=== PATIENT | male | born 1990 | race Caucasian/White ===

== ENCOUNTER 2016-11-03 15:14 | Inpatient (IN) | payer OTHER ==
[~2016-11-03] VITALS: Ht 190.5 cm; Wt 119.0 kg
--- NOTE | ~2016-11-03 | RESCARESUM ---
"PATIENT: JESSE SHARMA | | [facility] UNIT #: [id number] | [address] AGE/SEX: 26 M : [birth year] | [address] | [place] [address] ADMIT/REG DATE: 11/03/16 | ROOM: [facility] LOC: ADTC | ADT | Summary of Residential Care Primary Counselor: Karina DESAI,[facility] Date of Admission: 11/03/16 Date of Discharge: 11/09/16 [place] [facility] Primary Care Provider Prior to Admission: none listed Admitting Diagnosis: F15.20 stimulant use disorder severe with history of IV use, F12.20 cannabis use disorder severe, F10.20 alcohol use disorder severe, F17.[address] Burnett's history and physical: bipolar disorder, attention deficit hyperactivity disorder, substance induced psychosis and increased risk for blood borne pathogens including HIV and hepatitis C. Discharge Diagnosis: same Goals Achieved: Client left treatment AMA prior to completion of treatment plan goals and objectives Continued Obstacles to Sobriety/Relapse Issues: impulsiveness, defiance, lack of structure and inability to follow through as well as relationships issues. Family Issues Addressed: none Y Individual Therapy Y Group Therapy Y Educational Series on Substance Abuse N Parents/Significant Others Attended Family Program N Acute Medical Problems During the Course of Treatment N Transferred to Hospital During the Course of Treatment (admits) Accepting of Substance Abuse Problem Non-accepting of Substance Abuse Problem n Required Psychological or Psychiatric Consultation During the Course of Treatment Completed AA Step # 0 During This Level of Care Significant Incidences During Treatment: Client's focus from admission was initially being readmitted to [facility]. When denied there, he then wanted to focus on getting into [facility]. When advised he would not be able to transition directly from treatment to [facility], he then began to look at admission to [facility]. Client failed to complete treatment assignments. Client was also noted to be focusing on female peers despite his agreement to not repeat behavior of getting into a treatment relationship. Reason For Discharge: x Left Tx Against Medical Advice/Treatment Goals Not Complete PATIENT: JESSE SHARMA | | [facility] UNIT #: [id number] | [address] [facility] AGE/SEX: 26 M : [birth year] | [address] | [place] [address] ADMIT/REG DATE: 11/03/16 | ROOM: [facility] LOC: ADTC | ADTC | Summary of Residential Care Continuing Care Plan/Recommendations: Intensive Partial Care x Sponsor Partial Care x AA Meetings/NA Meetings Outpatient Co-dependency Services Therapeutic Community x / Way House x / Way House Mental Health Therapy Marriage Counseling Other Specific Continuing Care Plan: Client would benefit from residential treatment as recommended followed by sob living environment to include structure and support to help him maintain recovery. Client has been referred to 12 step meetings and sponsorship. PRIMARY COUNSELOR: LLOYD Moreno, LADC"
--- NOTE | 2016-11-03 16:35 | NUR ---
ADMISSION NOTE Rights/Responsibilities: Copy given and explained to client. Signed and accepted by client. Client oriented to physical lay out of the ADTC unit, given Big Book and admission packet. A Sam was assigned. Rocco Client is a 26yr old single male. Referred by CSU where he has been for the past 14 days. Lives in [place], [place]. DOC, Meth, last used 10/20/16, 8-ball. No allergies, Nurse has info on meds. Was searched no contraband. No family participation. Initial paperwork given and guidlines gone over. Doctor was notified.
--- NOTE | 2016-11-03 16:45 | NUR ---
IS .25 HRS. Client was admitted at 4 P.M. Met briefly with client before supper to welcome him back to treatment, re-orient him and discuss initial treatment plan which client verbalized understanding and signed.
--- NOTE | 2016-11-03 18:21 | NUR ---
Education: 1 Hour. Client attended "Self Esteem" lecture presented by staff.
--- NOTE | 2016-11-03 18:22 | NUR ---
Education: 1 Hour. Client attended "Self Esteem" lecture presented by staff.
--- NOTE | 2016-11-03 23:10 | NUR ---
alexsandra note: client was checked into his room & attended the onsite NA meeting. Client was seen by the DR. Client was redirected by tech during the NA meeting for talking to a female seated beside him. Client gave his first intro. SE: coming to treatment.
--- NOTE | 2016-11-04 05:09 | NUR ---
Bed Note: Clt lay motionless in bed with eyes closed showing no distress at all bed checks.
--- NOTE | 2016-11-04 11:08 | NUR ---
Tech Note: Client participated in Spiritual Enrichment. Client stated that he preferred to be called by a nickname he had used since childhood. Client was redirected to use his real name while in treatment. When client insisted, client was directed to consult with assistant program manager.
--- NOTE | 2016-11-04 11:30 | NUR ---
AM GRP 1.5 HRS, Ratio 1:11/ Clt shared about the broken relationship he was in, and how it had started in tx, but didn't get serious until they both got out. He stated for the next 10 months, he was obsessed w/ her and ended up using over her.
--- NOTE | 2016-11-04 17:00 | NUR ---
IS .25 HRS. Met with client to discuss [facility] as he advised on admission that he wants to return there. He was advised they will not take him back as he was discharged due to not paying rent. Client is disappointed. He then discussed his desire to go to [facility] and signed release of information for the coordinator there and a voicemail was left. Client hopes he can go directly to [facility] after treatment since he cannot return to [facility]. Suggested client could consider other [facility] in [place], [place] or [place]. Client's ex-girlfriend (relationship started in prior treatment) is mary at [facility] in [place]. Client was directed to work on HOW TO GET STARTED IN TREATMENT and reading from big book.
--- NOTE | 2016-11-04 17:03 | NUR ---
step education 1 hr/ Focus was on step 6 and looking at character defects and letting God remove them. Each person took some time looking at a list of character defects and wrote out answers to a set of questions and then shared and discussed. This client participated. He shared some defects are anger, aggression, and violence.
--- NOTE | 2016-11-04 19:14 | NUR ---
Education 1 Hour: Client heard a presentation on marijuana.
--- NOTE | 2016-11-04 22:10 | NUR ---
vEducation 1 HR: Clt watched video by Taylor "Jimmy Carter" with staff present.
--- NOTE | 2016-11-04 22:31 | NUR ---
Tech Note: Clt walked for recreation, attended GM and onsite AA mtg. SE walk
--- NOTE | 2016-11-05 04:44 | NUR ---
Bed Note: Clt lay motionless in bed with eyes closed showing no distress at all bed checks.
--- NOTE | 2016-11-05 11:30 | NUR ---
GROUP 1.5 HRS. 1:11 Group discussion included step 1 assignment to identify how betrayed values (pg. 10) and effects on others (pg. 11) as well as feelings letters and sharing damage to relationships. This client reported at the beginning of group that he was nauseous. He was asked if related to withdrawal but he denied and stated he thought maybe he ate too much at breakfast. Client was noted to be sleeping and was woke up and asked to stand. He did not do so and shortly fell asleep again with light snoring. He was woke up and advised he either needed to stand or leave group. He left. Discussed afterwards that client believes his medications are making him drowsy and that he can fall asleep standing up so that does not help.
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
--- NOTE | 2016-11-05 16:12 | NUR ---
Tech Note: Client listened to speaker Jorge Sears and is working on Asking for Help.
--- NOTE | 2016-11-05 20:41 | NUR ---
Tech note: client watched TV and movies. Walked to optional offiste AA meeting. SE:
--- NOTE | 2016-11-06 04:55 | NUR ---
Bed note: Client was in bed with eyes closed and no distress at all bed checks.
--- NOTE | 2016-11-06 16:47 | NUR ---
Tech Note: Client attended the A.A.Meeting at [address] [place] [address] and is working on Getting Started packet/Step1. Client was late to brittanie meditation this morning
--- NOTE | 2016-11-06 22:44 | NUR ---
Tech note: Client walked around the park a few times for rec. Client walked to an off site AA meeting. Client was redirected for spending to much time with females and lending them clothing. SE: Seeing AA friends
--- NOTE | 2016-11-07 05:00 | NUR ---
Bed note: client was in bed with eyes closed and no distress at all bed checks.
--- NOTE | 2016-11-07 15:27 | NUR ---
TECH NOTE: Client participated in big book study, attended christianity, completed chores and watched tv/movies. Client was redirected for being in room, under the covers in bed at 11:30 and 12:45.
--- NOTE | 2016-11-07 23:15 | NUR ---
tech note: Client participated in [employer]. Client went to [facility] and left the [facility] meeting & came up to tech station to get cigarettes. Client was asked by tech why he had left the meeting and told its not ok to return. Client watched tv. Client was redirected for having drink in the hallway. SE: Waking up clean.
--- NOTE | 2016-11-08 04:44 | NUR ---
Bed note: client was in bed with eyes closed and no distress at all bed checks.
--- NOTE | 2016-11-08 14:56 | NUR ---
Tech note: Client is working on Getting started and Step 1.
--- NOTE | 2016-11-08 22:52 | NUR ---
Tech Note: Clt walked for recreation and attended onsite NA mtg. Watched tv and movies. SE another day
--- NOTE | 2016-11-09 04:40 | NUR ---
Bed Note: Clt lay motionless in bed with eyes closed showing no distress at last bed checks. At first bed check time clt was out of room for a drink and second bed check time clt came out of room for PRN for heartburn.
--- NOTE | 2016-11-09 09:45 | NUR ---
[facility] Ror Engineer addressed his lateness over the weekend which was several times in community. He was given the same chance to address this issue himself like several other clts addressed their own issues. He was asked by me to report to every thing 5 minutes early to learn the difference of being early and how being late feels. He came to me after community asking to use the phone to call for a ride. Since this was close to 10:00 am group we asked him to pack up will his roommate could be there and not miss his group too. Client called [employer] and they picked him up. He plans to join [employer]. He was informed to not be on the unit for 30 days.
--- NOTE | 2016-11-09 10:18 | NUR ---
DISCHARGE NOTE Client elected to leave AMA, taking all personal belongings with him. Client was given claim tabs so that he could get his home medications that were stored at the pharmacy. AMA form was signed and an incident report was filed.
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
--- NOTE | 2017-01-09 17:18 | DS ---
ADMIT: 11/03/2016 RM/LOC: Matt [facility] MR#: [id number] [address] [facility] [address] [place], [place] [address] JESSE SHARMA [address] [place] [address] General Discharge Summary SEX: M AGE: 26 : 1990 ADMISSION DATE: 11/03/2016 DISCHARGE DATE: 11/09/2016 INDICATION FOR HOSPITALIZATION: Cuong is a 26-year-old single, white male, admitted to residential level treatment at [facility] on November 03, 2016, after going through treatment in November of 2015 with discharge in December 2015. He recently got fired from his job, was kicked out of a care home house. Relapsed on drugs and was referred back to residential level treatment at [facility] on October 19 to detox prior to coming to treatment. His drug of choice on admission is methamphetamines. Second drug of choice is cannabis. Third drug of choice is alcohol. Please see his admission H and P for further details regarding his history of present illness, past medical history, physical exam, and assessment at the time of hospitalization. HOSPITAL COURSE: On admission, Jesse was admitted to our residential level treatment pino. He was placed on multivitamin and thiamine given his history of alcohol abuse dependency. HIV and hepatitis C testing were ordered given his increased risk of exposure. On admission, Karina Parkinson was his primary counselor. Jesse underwent individual and group therapy sessions on drug and alcohol abuse dependency. Issues regarding relapse triggers and relapse prevention were addressed. He was overall somewhat non accepting with his substance abuse problems. He completed no steps of Alcoholics Anonymous. During treatment, issues regarding his focusing on completion of treatment program versus discharge planning along with issues with female peers were addressed. He ultimately left treatment against medical advice. Reason for discharge is leaving AMA. Aftercare recommendations include completion of residential level treatment program, three-quarter or care home house placement with sponsor assignment and active AA and NA meeting involvement. LAB AND X-RAY DATA: None completed. DISCHARGE MEDICATIONS: Include: 1. Depakote ER 500 mg two at bedtime. 2. Seroquel 200 mg at bedtime. 3. Multivitamin daily. 4. Thiamine 100 mg daily. 5. Melatonin 3 mg at supper and 6 mg at bedtime. ADMIT: 11/03/2016 RM/LOC: Matt [facility] MR#: [id number] [address] [address] JESSE SHARMA [address] [place], [place] [id number] General Discharge Summary SEX: M AGE: 26 : 1990 FINAL DISCHARGE DIAGNOSES: Include: 1. Stimulant use disorder, severe with history of IV use and shared needles. 2. Cannabis use disorder, severe. 3. Alcohol use disorder, severe. 4. Tobacco use disorder. 5. Bipolar disorder. 6. Attention deficit hyperactivity disorder. 7. Substance-induced psychoses. 8. Increased risk for blood borne pathogens. PROCEDURES: Include failed attempts at drug and alcohol abuse dependency treatment and counseling. Please see his hospital record for further details. Eric Burnett MD/ espinoza JOB #: [id number] CC: Eric Burnett MD, Attending Physician FAMILY PHYSICIAN, Family Physician
== END 2016-11-09 10:21 | disposition left against medical advice (07) | DRG 894 ==
LOC: ADTC 15:53 → EDBD 15:53 → ADTC 11-09 10:21
PROVIDERS: ADMIT Family Medicine
PROC: HZ43ZZZ Group Counseling for Substance Abuse Treatment, 12-Step (ICD-10-PCS; principal; 2016-11-03)
PROC: HZ34ZZZ Individual Counseling for Substance Abuse Treatment, Interpersonal (ICD-10-PCS; principal; 2016-11-03)
DX: F15.20 Other stimulant dependence, uncomplicated (principal); F10.20 Alcohol dependence, uncomplicated; F19.259 Other psychoactive substance dependence with psychoactive substance-induced psychotic disorder, unspecified; F31.9 Bipolar disorder, unspecified; F12.20 Cannabis dependence, uncomplicated; F17.210 Nicotine dependence, cigarettes, uncomplicated; F90.9 Attention-deficit hyperactivity disorder, unspecified type; Z65.3 Problems related to other legal circumstances; Z63.72 Alcoholism and drug addiction in family; Z72.89 Other problems related to lifestyle